=== PATIENT | male | born 1985 | race American Indian/Alaskan Native ===

== ENCOUNTER 2018-03-21 16:08 | Emergency (ER) | payer SELFPAY ==
[2018-03-21 16:27] VITALS: BP 115/93
== END 2018-03-21 18:12 | disposition left against medical advice (07) ==
LOC: ED 16:08
DX: R07.9 Chest pain, unspecified (principal); Z53.21 Procedure and treatment not carried out due to patient leaving prior to being seen by health care provider
CPT/HCPCS: 93005; 93010

== ENCOUNTER 2019-07-01 11:43 | Emergency (ER) | payer OTHER ==
--- NOTE | 2019-07-01 11:50 | Emergency Department Report ---
Blank Doc - Documentation Documentation: This is a 33-year-old male that presents with bilateral groin and with radiation to lower back. Denies any other symptoms. This initial assessment/diagnostic orders/clinical plan/treatment(s) is/are subject to change based on patient's health status, clinical progression and re- assessment by fellow clinical providers in the ED. Further treatment and workup at subsequent clinical providers discretion. Patient/guardians urged not to elope from the ED as their condition may be serious if not clinically assessed and managed. Initial orders include: 1- Patient sent to [facility] for further evaluation and treatment 2- UA
[2019-07-01 11:52] VITALS: BP 125/71
[2019-07-01] MEDS ORDERED: IBUPROFEN PO ONE (12:25)
--- NOTE | 2019-07-01 12:25 | Emergency Department Report ---
ED Dysuria HPI - HPI Chief Complaint: Back Pain/Injury Stated Complaint: LOWER ABD PAIN Time Seen by Provider: 07/01/19 11:49 Duration: 1 Day Location of Discomfort: Flank Severity: Mild Symptoms: Dysuria: No, Frequency: No, Suprapubic Pain: No, Flank Pain: Yes, Fever: No, Hematuria: No, Abdominal Pain: No, Previous UTI's: No Other History: Patient is a 33-year-old male who comes to the ER today complaining of low back pain. On further probing he states that the pain radiates from bilateral low back to bilateral lower quadrant pain. He is convinced that he has a kidney stone after being on [employer] Patient denies any fever or chills. He IS no known acute distress. He has no CVA tenderness. Has no dysuria. Has no discharge. Has no history of kidney stones. ED Review of Systems ROS: Stated complaint: LOWER ABD PAIN Other details as noted in HPI Comment: All other systems reviewed and negative ED Past Medical Hx - Past Medical History Previous Medical History?: No - Surgical History Past Surgical History?: No - Social History Smoking Status: Never Smoker Substance Use Type: None - Medications Home Medications: Home Medications Medication Instructions Recorded Confirmed Last Taken Type Ibuprofen [Motrin] 800 mg PO Q8HR PRN #20 tablet 07/01/19 Unknown Rx Dysuria Exam - Exam General: Vital signs noted. No distress. Alert and acting appropriately. Exam: Yes Moist Mucous Membranes, No CVA Tenderness, No Abdominal Tenderness, No Rigidity or Guarding ED Course Vital Signs 07/01/19 11:50 Temperature 98.3 F Pulse Rate 59 L Respiratory 18 Rate Blood Pressure 125/71 O2 Sat by Pulse 100 Oximetry ED Medical Decision Making - Lab Data Result diagrams: 07/01/19 12:39 07/01/19 12:39 - Medical Decision Making Vital Signs 07/01/19 11:50 Temperature 98.3 F Pulse Rate 59 L Respiratory 18 Rate Blood Pressure 125/71 O2 Sat by Pulse 100 Oximetry Lab Results 07/01/19 07/01/19 07/01/19 Range/Units 12:39 12:39 Unknown WBC 7.6 (4.5-11.0) K/mm3 RBC 4.52 (3.65-5.03) M/mm3 Hgb 14.7 (11.8-15.2) gm/dl Hct 42.7 (35.5-45.6) % MCV 94 (84-94) fl MCH 32 (28-32) pg MCHC 34 (32-34) % RDW 13.7 (13.2-15.2) % Plt Count 287 (140-440) K/mm3 Sodium 138 (137-145) mmol/L Potassium 4.3 (3.6-5.0) mmol/L Chloride 100.7 (98-107) mmol/L Carbon Dioxide 26 (22-30) mmol/L Anion Gap 16 mmol/L BUN 13 (9-20) mg/dL Creatinine 1.0 (0.8-1.5) mg/dL Estimated GFR > 60 ml/min BUN/Creatinine Ratio 13 % Glucose 104 H (75-100) mg/dL Calcium 9.6 (8.4-10.2) mg/dL Urine Color Yellow (Yellow) Urine Turbidity Clear (Clear) Urine pH 7.0 (5.0-7.0) Ur Specific [place] 1.013 (1.003-1.030) Urine Protein <15 mg/dl (Negative) mg/dL Urine Glucose (UA) Neg (Negative) mg/dL Urine Ketones Neg (Negative) mg/dL Urine Blood Neg (Negative) Urine Nitrite Neg (Negative) Urine Bilirubin Neg (Negative) Urine Urobilinogen < 2.0 (<2.0) mg/dL Ur Leukocyte Esterase Neg (Negative) Urine WBC (Auto) 1.0 (0.0-6.0) /HPF Urine RBC (Auto) 2.0 (0.0-6.0) /HPF U Epithel Cells (Auto) < 1.0 (0-13.0) /HPF MEDICATED FOR PAIN UA AND LABS NOTED DISCUSSED FINDINGS WITH PT WILL DC HOME WITH DC PLAN OF CARE INCLUDING URO FOLLOW UP - Differential Diagnosis RO UTI/ RO K STONE Critical care attestation.: If time is entered above; I have spent that time in minutes in the direct care of this critically ill patient, excluding procedure time. ED Disposition Clinical Impression: Flank pain Disposition: DC-01 TO HOME OR SELFCARE Is pt being admited?: No Does the pt Need Aspirin: No Condition: Stable Instructions: Flank Pain (ED) Additional Instructions: URINE AND LABS ALL NORMAL TODAY KIDNEY FUNCTION NORMAL NO EVIDENCE OF BLOOD IN URINE OR URINARY INFECTION MED ORDERED TODAY HYDRATE WELL WITH WATER FOLLOW UP WITH UROLOGY NEXT WEEK IF PAIN PERSISTS REFERRAL BELOW Referrals: DARCI GEORGE MD [Staff Physician] - 3-5 Days Time of Disposition: 13:41
[2019-07-01 13:13] LABS: Hematocrit 42.7 % (35.5-45.6); Hemoglobin 14.7 gm/dl (11.8-15.2); Mean Corpuscular HGB Conc 34 % (32-34); Mean Corpuscular Volume 94 fl (84-94); Platelet Count 287 K/mm3 (140-440); Red Blood Count 4.52 M/mm3 (3.65-5.03); Red Cell Distribution Width 13.7 % (13.2-15.2)
[2019-07-01 13:19] LABS: Bilirubin,Urine NEG (Negative); Blood,Urine NEG (Negative); Color,Urine Yellow (Yellow); Protein,Urine <15 mg/dL mg/dL (Negative); Urobilinogen,Urine < 2.0 mg/dL (<2.0)
[2019-07-01 13:28] LABS: BUN/Creatinine Ratio 13; Blood Urea Nitrogen 13 mg/dL (9-20); Calcium 9.6 mg/dL (8.4-10.2); Hemolysis Index 10
== END 2019-07-01 15:55 | disposition home or self-care (01) ==
LOC: ED 11:43
DX: R10.9 Unspecified abdominal pain (principal)
CPT/HCPCS: 36415; 80048; 81001; 85027